=== PATIENT | male | born 2000 | race Caucasian/White ===

== ENCOUNTER 2018-11-29 01:53 | Emergency (ER) | payer MEDICAID ==
[~2018-11-29] VITALS: Ht 175.3 cm; Wt 74.4 kg
[2018-11-29 01:54] VITALS: BP 157/89
--- NOTE | 2018-11-29 02:03 | NUR ---
ARIADNE RN: PT PULLED FROM CAR BY FRIENDS. PT BROUGHT INTO THE ER LOBBY AND STRAIGHT BACKED TO T4. PT WAS PALE AND SWEATY. EYES PINPOINT. IV STARTED NARCAN GIVEN. PT REPORTS HE HAS BEEN DRINKING AND TAKING PERCOCET. VS STABLE. CLOTH BIN PACKER ON. SINUS TACH NOTED. FRIENDS AT BEDSIDE. WARM BLANKET GIVEN. REPORT GIVEN TO SHERRY CHARLES
[2018-11-29 02:07] LABS: MEAN CORPUSCULAR HEMOGLOBIN 30.3 pg (27.5-34.5); MEAN CORPUSCULAR HGB CONC 32.7 g/dL (33.2-36.2); MEAN CORPUSCULAR VOLUME 92.6 fL (81-97); MEAN PLATELET VOLUME 7.7 fL (7.4-10.4); PLATELET COUNT 303 x10^3/uL (130-400); RED BLOOD COUNT 5.43 x10^6/uL (4.38-5.82); RED CELL DISTRIBUTION WIDTH 14.5 % (9.4-14.8)
[2018-11-29 02:18] LABS: ALBUMIN 4.4 g/dL (3.4-5.0); ANION GAP 10 mmol/L (5-15); CALCIUM 8.6 mg/dL (8.5-10.1); CHLORIDE 108 mmol/L (98-107); CREATININE 1.45 mg/dL (0.7-1.3); SALICYLATE LEVEL 1.8 mg/dL (2.8-20.0)
[2018-11-29 02:21] LABS: ACETAMINOPHEN < 2 mcg/mL (10-30); ALANINE AMINOTRANSFERASE 19 U/L (12-78); ALKALINE PHOSPHATASE 73 U/L (45-117); BILIRUBIN,TOTAL 0.3 mg/dL (0.2-1.0); TOTAL PROTEIN 7.9 g/dL (6.4-8.2)
--- NOTE | 2018-11-29 02:32 | NUR ---
PT A/O X 4. PT WITH FRIENDS AT BEDSIDE AND AWAITING TEST RESULTS.
[2018-11-29 02:53] LABS: BASOPHILS # (AUTO) 0.02 x10^3/uL (0-0.1); BASOPHILS % (AUTO) 0 % (0-1); EOSINOPHILS # (AUTO) 0.03 x10^3/uL (0-0.4); EOSINOPHILS % (AUTO) 0 % (1-7); LYMPHOCYTES # (AUTO) 6.37 x10^3/uL (1-3.4); LYMPHOCYTES % (AUTO) 54 % (22-44); MD SCAN; MONOCYTES # (AUTO) 0.79 x10^3/uL (0.2-0.8); MONOCYTES % (AUTO) 7 % (2-9); NEUTROPHILS % (AUTO) 40 % (42-75)
== END 2018-11-29 05:05 | disposition home or self-care (01) ==
LOC: EDBD 01:53 → ED 03:22
DX: T40.2X1A Poisoning by other opioids, accidental (unintentional), initial encounter (principal); G92 Toxic encephalopathy; R41.82 Altered mental status, unspecified; R06.89 Other abnormalities of breathing; R06.81 Apnea, not elsewhere classified; F11.129 Opioid abuse with intoxication, unspecified; Y92.9 Unspecified place or not applicable
CPT/HCPCS: 36415; 80053; 80307; 85025; 93005